=== PATIENT | male | born 1940 | race Caucasian/White ===

== ENCOUNTER 2017-11-12 09:20 | Inpatient (IN) | payer MEDICARE, BC ==
[~2017-11-12] VITALS: Ht 180.3 cm; Wt 160.6 kg
[2017-11-12] VITALS (13 sets, daily range): BP systolic 142–160; BP diastolic 55–85
--- NOTE | ~2017-11-12 | H ---
[address] [address] HISTORY AND PHYSICAL Name: CHANA MASSEY Room: [address]#: [id number] Admission: 11/12/17 Attend Phys: Ruben Castro MD, F Discharge: 11/13/17 Date of : 40 Report #: [id number] THIS REPORT FOR: //name// Please refer to the History and Physical performed in the physician's office. By: 1315Medical Records Staff LUIS /OPAL
[~2017-11-12 09:20] MED LIST: ALBUTEROL2.5 MG/31 INH; ALDACTONE50 MG PO; ASPIRIN325 PO; ATORVASTATIN CA40 MG PO; B-100 COMPLEX100 MG PO; BYSTOLIC 5 MG5 M1 PO; CALCIUM 600 +1 EA11 PO; CHLORTHALIDONE25 MG PO; CITRUCEL500 MG PO; CO Q-10100 MG PO; COLACE 100 MG100 MG PO; EFFIENT10 MG PO; FISH OIL 1,0001 EAC5 PO; FLOMAX0.4 MG PO; FUROSEMIDE 40 M40 M1 PO; GLUCOSAMINE CH1 EAC7 PO; GLUCOSAMINE CH1 EAC8 PO; IMDUR 30 MG TAB30 M1 PO; IMDUR30 MG PO; LASIX 20 MG TAB20 MG PO; LIPITOR10 MG PO; LIPITOR40 MG PO; LISINOPRIL40 MG PO; LOPRESSOR 50 MG50 M1 PO; LOW DOSE ASPIRI81 M1 PO; MULTIVITAMINS PO; MULTIVITAMINS1 EAC7 PO; NIFEDICAL XL30 MG PO; NORVASC10 MG PO; PINDOLOL10 MG PO; PLAVIX 75 MG TA75 M1 PO; PLAVIX 75 MG TA75 MG PO; POTASSIUM99 M1 PO; PREDNISONE 10 M10 M1; PRINIVIL40 MG PO; PROAIR HFA8.5 GM INH; RANITIDINE HCL300 M1 PO; SINGULAIR 10 MG10 M1 PO; STOOL SOFTENER50 MG PO; TOPROL XL25 MG PO; TOPROL XL50 MG PO; VITAMIN C1000 MG PO; VITAMIN D-32000 UNIT PO; VITAMINC500 PO
[2017-11-12 10:04] LABS: HEMATOCRIT 37.5 % (42.0-52.0); HEMOGLOBIN 12.5 gm/dL (14.0-18.0); MCH 31.7 pg (26.0-34.0); MCHC 33.2 g/dL (28.0-37.0); MCV 95.5 fL (80.0-100.0); MPV 8.9 fl. (7.2-11.1); RBC 3.93 mil/uL (4.50-6.00); RDW-CV 13.6 % (10.5-14.5); WBC 10.4 thou/uL (4.0-11.0)
[2017-11-12 10:14] LABS: ANION GAP 8 mmol/L (7-16); BUN 16 mg/dL (7-18); CHLORIDE 97 mmol/L (98-107); CO2 33 mmol/L (21-32); CREATININE 1.1 mg/dL (0.6-1.3); GLUCOSE 107 mg/dL (70-99); POTASSIUM 4.3 mmol/L (3.5-5.1); SODIUM 138 mmol/L (136-145)
[2017-11-12 10:18] LABS: APTT 26.5 Seconds (25.0-31.3); INR 1.1; PROTIME 10.9 Seconds (9.20-11.50)
[2017-11-12 10:19] LABS: ALBUMIN 2.9 g/dL (3.4-5.0); ALKALINE PHOSPHATASE 125 U/L (46-116); CHOLESTEROL 100 mg/dL (<200); HDL CHOLESTEROL 44 mg/dL (>40); LDL CHOLESTEROL 41 mg/dL (<100); SGOT 28 U/L (15-37); SGPT 37 U/L (30-65); TC:HDL 2.3 Ratio (Not establshd); TOTAL BILIRUBIN 0.6 mg/dL (<0.1-1.0); TOTAL PROTEIN 6.9 g/dL (6.4-8.2); TRIGLYCERIDE 75 mg/dL (<150); VLDL 15 mg/dL (<40)
[2017-11-12 10:21] LABS: SERUM ASSESSMENT Clear
--- NOTE | 2017-11-12 11:33 | EKG ---
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: : 1940 Requested By: Ruben Castro Order Number: [id number] Reading MD: Ruben Castro Measurements Intervals [place] Rate: 75 P: -12 [place]: 246 QRS: -34 QRSD: 120 T: 9 QT: 385 QTc: 430 Interpretive Statements Sinus rhythm Paired ventricular premature complexes Prolonged [place] interval left axis Baseline wander in lead(s) V3,V4 Compared to ECG 01/26/2014 09:09:56 First degree AV block now present Prolonged QT interval no longer present Electronically Signed On 11-12-2017 11:33:33 MODULAR SET CREW MEMBER by Ruben Castro [email or web address] <ELECTRONICALLY SIGNED> By: Ruben Castro MD, FAC 11/12/17 1133 1049 1049 Ruben Castro MD, [facility] /EPI
--- NOTE | 2017-11-12 16:29 | EKG ---
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: : 1940 Requested By: Ruben Castro Order Number: [id number] Reading MD: Ruben Castro Measurements Intervals [place] Rate: 81 P: 15 [place]: 245 QRS: -37 QRSD: 120 T: 30 QT: 397 QTc: 461 Interpretive Statements Sinus rhythm Multiple ventricular premature complexes Prolonged [place] interval Nonspecific IVCD with LAD Baseline wander in lead(s) II,III,aVF Compared to ECG 11/12/2017 10:49:31 no change Electronically Signed On 11-12-2017 16:29:49 ETHYLBENZENE CONVERTER HELPER by Ruben Castro [email or web address] <ELECTRONICALLY SIGNED> By: Ruben Castro MD, FAC 11/12/17 1629 1418 1418 Ruben Castro MD, [facility] /EPI
[2017-11-12] MEDS ORDERED: LASIX 20 MG TAB20 MG PO (20:40)
[2017-11-12] MEDS ORDERED: SILVADENE20 GM TOP (20:41)
[2017-11-12] MEDS ORDERED: ARTIFICIAL TEA1 EACH OPHTHALMIC (20:41)
[2017-11-13] VITALS: BP 128/54
[2017-11-13 04:00] VITALS: BP 150/69
--- NOTE | 2017-11-13 07:33 | NUR ---
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 A/OX4. TELE MONITOR TRACING SR/1D. VSS. ON 2L NC. IVF INFUSING PER MAR. VOIDING PER URINAL. UP SBA. PT'S IN ROOM DURING NIGHT-NEITHER SLEPT TONIGHT, OFFERING MUCH HELP. PT REPORTED H/A LAST NIGHT THEN WENT TO SLEEP. WHEN ASKED LATER IF HE WANTED ANY APAP, HE REFUSED. RIGHT RADIAL SITE DRSG C/D/I THIS AM, BRUISING NOTED AND OUTLINED AT BEGINNING OF SHIFT AND HAS NOT GROWN. SEE CHARTING. CALL LIGHT IN REACH, WILL CONTINUE WITH PLAN OF CARE.
[2017-11-13 07:36] LABS: HEMATOCRIT 34.3 % (42.0-52.0); HEMOGLOBIN 11.7 gm/dL (14.0-18.0); MCH 32.2 pg (26.0-34.0); MCHC 34.1 g/dL (28.0-37.0); MCV 94.5 fL (80.0-100.0); RBC 3.63 mil/uL (4.50-6.00); RDW-CV 13.7 % (10.5-14.5); WBC 9.2 thou/uL (4.0-11.0)
[2017-11-13 07:45] VITALS: BP 162/77
[2017-11-13 09:20] VITALS: BP 162/77
[2017-11-13 10:02] VITALS: BP 162/77
[2017-11-13] MEDS ORDERED: PLAVIX 75 MG TA75 M1 PO (10:32)
--- NOTE | 2017-11-13 10:45 | NUR ---
PT. A/OX4, VSS, MONITOR ON TRACING SR WITH 1ST. PT. DENIES CURRENT PAIN/SOB. ON 2L CURRENTLY, HOWEVER REMOVED AND PT. STABLE AT 95%. FULL ASSESSMENT COMPLETED, REFER TO CHARTING. PT AND SPOUSE EAGER TO SEE DOCTOR FOR DC DUE TO INCLEMENT WEATHER. DC ORDERS RECEIVED. IV AND MONITOR REMOVED. PT. AND SPOUSE GIVEN DC INSTRUCTIONS, SCRIPTS, AND CARENOTES. INFORMED THAT SCRIPT NEEDED TO BE PICKED UP TODAY AND PT. NEEDS TO TAKE PLAVIX DAILY, VERBALIZED UNDERSTANDING. PT. LEFT VIA WHEELCHAIR TO RETURN HOME IN PERSONAL VEHICLE, ALL BELONGINGS ACCOUTNED FOR.
--- NOTE | 2017-11-13 17:30 | EKG ---
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: : 1940 Requested By: Ruben Castro Order Number: [id number] Reading MD: Laith Candelario Measurements Intervals [place] Rate: 85 P: 19 [place]: 230 QRS: -37 QRSD: 115 T: 19 QT: 378 QTc: 450 Interpretive Statements Sinus tachycardia Paired ventricular premature complexes Prolonged [place] interval Incomplete left bundle branch block Compared to ECG 11/12/2017 14:18:23 Left bundle-branch block now present Sinus rhythm no longer present Intraventricular conduction delay no longer present Electronically Signed On 11-13-2017 17:30:08 PAINT ROLLER COVERMAKER by Laith Candelario [email or web address] <ELECTRONICALLY SIGNED> By: Laith Candelario MD, FAC 11/13/17 1730 2 08 Laith Candelario MD, [facility] /EPI
--- NOTE | 2017-11-13 19:34 | D ---
[address] [address] DISCHARGE SUMMARY Name: CHANA MASSEY Jacey Room: [address] IN M.R.#: [id number] Admission: 11/12/17 Attend Phys: Ruben Castro MD, F Discharge: 11/13/17 Date of : 40 Report #: [id number] THIS REPORT FOR: //name// CC: Ruben Caruso DATE OF SERVICE: 11/13/2017 DISCHARGE DIAGNOSES: 1. Unstable angina. 2. Coronary artery disease. 3. Hypertension. 4. Aortic stenosis. 5. Hyperlipidemia. 6. Obesity. CONSULTANTS: None. PROCEDURES: Coronary angiography with placement of a single drug-eluting stent in the circumflex artery via the radial approach. HISTORY OF THE PRESENT ILLNESS: The patient is a 77-year-old white male who was brought to Outpatient Department to undergo repeat cardiac catheterization. The patient has had multiple coronary artery stents in the past. He has been followed by my partner, Dr. Gregorio Caruso. The patient is morbidly obese and not very active. Recently, he has been having frequent chest pressure. Nitroglycerin did seem to help. He had a recent echocardiogram that showed normal left ventricular function with evidence of mild aortic stenosis. He underwent a stress test that showed no significant ischemia. However, despite medical therapy, the patient continued to have frequent chest pain. Dr. Caruso recommended repeat cardiac catheterization. PAST MEDICAL HISTORY: Otherwise, significant for no other major surgical procedures. He has a history of hypertension and hyperlipidemia. MEDICATIONS: On admission included amlodipine, aspirin, Lipitor, chlorthalidone, Lasix, lisinopril, metoprolol, ranitidine and Flomax. PHYSICAL EXAMINATION: VITAL SIGNS: Elderly male with blood pressure 140/70. Pulse is 70. CHEST: Clear to auscultation. CARDIAC: Regular rhythm. Grade 2 systolic ejection murmur. ABDOMEN: Obese. EXTREMITIES: [place] [address] DISCHARGE SUMMARY Name: CHANA MASSEY Jacey Room: [address]#: [id number] Admission: 11/12/17 Attend Phys: Ruben Castro MD, F Discharge: 11/13/17 Date of : 40 Report #: [id number] LABORATORY WORK: Sodium 138. Creatinine 1.1. His liver function studies were normal. Cholesterol 100, triglycerides 75, HDL 44 and LDL 141. His white blood cell count 10.4 and hemoglobin 12.5. HOSPITAL COURSE: The patient was brought to Outpatient Department. I performed coronary angiography from the right radial artery. Results showed the stent in the mid LAD with no restenosis. There was a distal 70% narrowing of the LAD. A small diagonal branch had 90% stenosis. The circumflex gave off a large first marginal branch and had a stent with no restenosis. Just after the marginal branch, there was a 90% narrowing of the mid circumflex. The distal right coronary artery had 70% stenosis. The patient was then given heparin and Aggrastat. I placed a new drug-eluting stent in the circumflex. I finished the procedure with kissing balloons in the circumflex and first marginal branch. He tolerated the procedure well. The patient had no further chest pain, arrhythmias or heart failure. Follow up ECG showed PVCs, but no other changes. The next day, his troponin was 0.09. Hemoglobin was 11.17. The patient was discharged to continue his home medications that consisted of amlodipine 10 mg a day, aspirin 81 mg a day, Lipitor 40 mg a day, chlorthalidone 25 mg a day, Lasix 20 mg a day for edema, Imdur 60 mg a day, lisinopril 40 mg twice a day, metoprolol succinate 50 mg a day, Singulair, ranitidine, Flomax 0.4 mg a day and he was given a prescription for Plavix 75 mg a day. He was given a prescription for nitroglycerin to take as needed for chest pain. He was discharged to return to care of Dr. Lemus for routine medical care. He will see my partner, Dr. Caruso in Cardiology Clinic in 6 weeks. He has a guarded prognosis due to his diffuse coronary artery disease. <ELECTRONICALLY SIGNED> By: Ruben Castro MD, [facility] 11/13/17 1934 1719 1753Dpaola Castro MD, [facility] /nt
--- NOTE | 2017-11-14 14:03 | CARD ---
[address] [address] CARDIAC CATH REPORT Name: CHANA MASSEY Jacey Room: [address] IN .Kris.#: [id number] Admission: 11/12/17 Attend Phys: Ruben Castro MD, F Discharge: 11/13/17 Date of : 40 Report #: [id number] THIS REPORT FOR: //name// APPROVED REPORT Patient Details Patient Status: Out-Patient Room #: The patient is a 77 year-old male Procedures Performed cath pci Indication Unstable angina Risk Factors Coronary Artery Disease Previous Procedures/Diagnoses Previous PCI Procedure Narrative The patient was brought electively to the Cardiac Catheterization Laboratory and was prepped and draped in a sterile manner. The right wrist was infiltrated with 1% Lidocaine subcutaneous anesthesia. A 6 fr sheath was inserted into the right radial artery. Coronary angiography was performed using coronary diagnostic catheters. The right coronary system was accessed and visualized with a Diagnostic catheter. The left coronary system was accessed and visualized with a Diagnostic catheter. The patient tolerated the procedure well and there were no complications associated with the procedure. There was no hematoma. Coronary Angiography The patient's coronary anatomy is right dominant. Diagnostic Cath Left Main 0% stenosis LAD stent in mid lad without restenosis. Apical lad had a 70% stenosis Diagonal 1 proximal 70% stenosis Circumflex 90% stenosis just after first marginal branch OM1 proximal stent had no restenosis Right Coronary 0% stenosis [address] [place] [address] CARDIAC CATH REPORT Name: CHANA MASSEY Jacey Room: [address] IN [facility].#: [id number] Admission: 11/12/17 Attend Phys: Ruben Castro MD, F Discharge: 11/13/17 Date of : 40 Report #: [id number] RPLV 70% stenosis Left Ventriculography Left Ventriculography was not performed. PCI Technique Lesion Anticoagulation was achieved with Heparin. iv aggrastat was used Percutaneous coronary intervention was performed on the mid circumflex artery segment. The lesion stenosis prior to intervention was 90% with DIXIE 3 flow. A xb3.5 Guide Catheter was used to engage the lm ostium. A bmw Interventional Guidewire was used to cross the lesion. BALLOON DILATION A Balloon catheter 2.5 x 8 mm was inserted and inflated up to 10atm for 15seconds. Repeat angiography revealed the following post-dilatation results: plague shift into circumflex. Second bmw wire was placed into first marginal branch STENT DEPLOYMENT A drug-eluting stent was inserted and inflated up to 9atm for 10seconds. Repeat angiography revealed the following post-stent deployment results: plaque shift into circumflex. POST STENT DEPLOYMENT BALLOON DILATION A Balloon catheter 2.5 x 8 mm was inserted and inflated up to 12atm for 20seconds. Repeat angiography revealed the following post-dilatation results: 0% stenosis. Kissing balloon PTCA was performed with balloon in first marginal branch, and 3.0 x 12 mm stent balloon in the circumflex Final angiography reveals 0 % stenosis with DIXIE 3 flow. Conclusion 1. Stents in mid lad and first marginal branch without restenosis 2. diffuse cad with 70% stenosis of the diagonal branch of the lad and 70% stenosis of the apical lad 3. 70% stenosis noted of the distal rca 4. successful stenting of the mid circumflex followed by kissing balloon angioplasty of the circumflex and first [place] [address] CARDIAC CATH REPORT Name: CHANA MASSEY Room: [address] IN .R.#: [id number] Admission: 11/12/17 Attend Phys: Ruben Castro MD, F Discharge: 11/13/17 Date of : 40 Report #: [id number] Cardiac Rehabilitation Referral [facility] <ELECTRONICALLY SIGNED> By: Ruben Castro MD, FACC 11/14/17 1403 1403 1403Dpaola Castro MD, FACC /INF
== END 2017-11-13 10:39 | disposition home or self-care (01) | DRG 247 ==
LOC: M.CL 09:20 → M.TBA-CV 13:46 → M.2W 20:05
PROVIDERS: ADMIT Internal Medicine Cardiovascular Disease
PROC: 027034Z Dilation of Coronary Artery, One Artery with Drug-eluting Intraluminal Device, Percutaneous Approach (ICD-10-PCS; principal; 2017-11-13)
DX: I25.110 Atherosclerotic heart disease of native coronary artery with unstable angina pectoris (principal); Z68.42 Body mass index [BMI] 45.0-49.9, adult; J96.10 Chronic respiratory failure, unspecified whether with hypoxia or hypercapnia; I10 Essential (primary) hypertension; I73.9 Peripheral vascular disease, unspecified; E66.01 Morbid (severe) obesity due to excess calories; G47.33 Obstructive sleep apnea (adult) (pediatric); I35.2 Nonrheumatic aortic (valve) stenosis with insufficiency; I70.1 Atherosclerosis of renal artery; E78.5 Hyperlipidemia, unspecified; E78.00 Pure hypercholesterolemia, unspecified; Z95.5 Presence of coronary angioplasty implant and graft; Z79.899 Other long term (current) drug therapy; Z79.82 Long term (current) use of aspirin; Z82.49 Family history of ischemic heart disease and other diseases of the circulatory system; Z83.79 Family history of other diseases of the digestive system; Z82.3 Family history of stroke; Z88.8 Allergy status to other drugs, medicaments and biological substances

== ENCOUNTER → 2018-10-21 | Outpatient (CLI) | payer MEDICARE, BC ==
[~2018-10-21] MED LIST changes: +ARTIFICIAL TEA1 EACH OPHTHALMIC; +SILVADENE20 GM TOP
[2018-10-21 12:07] LABS: CALCIUM 9.1 mg/dL (8.5-10.1); CREATININE 1.4 mg/dL (0.6-1.3)
== END ==
LOC: M.LAB 11:13
PROVIDERS: Nurse Practitioner
DX: R60.0 Localized edema (principal); R06.02 Shortness of breath